=== PATIENT | female | born 1995 | race Caucasian/White ===

== ENCOUNTER 2016-09-30 06:10 | Inpatient (IN) | payer MEDICAID ==
[~2016-09-30] VITALS: Ht 165.1 cm; Wt 68.6 kg
--- NOTE | ~2016-09-30 | OR ---
PATIENT'S NAME: ALANA [facility] AGE: 21 Y [address] ROOM: [place] [id number] LOCATION: GO ADMIT DATE: 09/30/2016 OR/Procedure Report DISCHARGE DATE: FAMILY PHYSICIAN: PHYSICIAN, NO ATTENDING PHYSICIAN: Neyda Torrez SURGEON: Neyda Torrez MD [employer]ALITY [employer] INDUSTRIAL ENGINEER: DATE OF PROCEDURE: 09/30/2016 PREOPERATIVE DIAGNOSES: 1. Intrauterine at 39 weeks and 1 day. 2. Favorable cervix. POSTOPERATIVE DIAGNOSES: 1. Intrauterine at 39 weeks and 1 day. 2. Favorable cervix. PROCEDURE: Spontaneous vaginal delivery. ESTIMATED BLOOD LOSS: 300 mL. ANESTHESIA: None. FINDINGS: Male , score 8 and 9. Weight 8 pounds 2 ounces. Intact placenta, 3-vessel cord. Second-degree perineal laceration. Clear amniotic fluid. INDICATIONS: This patient is a 21-year-old, G1, P0, who is 39 weeks and 1 day gestation. She has been about 4 cm, 75%, and 0 station and lives far from the hospital, so the decision was made for labor augmentation. She had artificial rupture of membranes and Pitocin and progressed pretty fairly quickly to complete. She underwent expulsive efforts for about 15 minutes. PROCEDURE IN DETAIL: With expulsive efforts, the head was delivered over an intact perineum. The rest of fetus delivered. The nose and mouth were bulb suctioned. The cord was clamped and cut. The infant was handed to awaiting team. Cord blood was drawn. The placenta was delivered with manual traction. Cervix, vagina, and perineum were examined. There was a second- degree perineal laceration, repaired with local lidocaine and Vicryl suture. COMPLICATIONS: None. CONDITION: Mom stable in room. to nursery. PATIENT'S NAME: ALANA [facility] AGE: 21 Y [address] ROOM: [place] [id number] LOCATION: [facility] ADMIT DATE: 09/30/2016 OR/Procedure Report DISCHARGE DATE: FAMILY PHYSICIAN: , NO ATTENDING PHYSICIAN: Neyda Torrez MD SHAGGY EVERETT/modl /[id number] d: 10/01/16 1649 t: 10/06/16 1054, OPERATIVE SUMMARY
[~2016-09-30 06:10] MED LIST: PRENATAL 1+1)(P1 TAB PO
[2016-09-30 08:00] LABS: BASOPHIL % 0.3 %; EOSINOPHIL # 0.2 K/uL (0.0-0.5); EOSINOPHIL % 1.5 %; HEMATOCRIT 34.3 % (33.0-46.0); HEMOGLOBIN 11.2 g/dL (11.0-15.0); IMMATURE GRANULOCYTE # 0.1 K/uL (0.0-0.3); IMMATURE GRANULOCYTE % 0.7 %; LYMPHOCYTE % 16.3 %; MCH 27.8 pg (27.0-34.0); MCHC 32.7 gm/dL (32.0-36.5); MCV 85.1 fl (83.0-98.0); MONOCYTE # 1.4 K/uL (0.0-1.0); MONOCYTE % 11.5 %; MPV 10.1 fl (9.4-12.4); NEUTROPHIL # (ANC) 8.5 K/uL (1.8-7.8); NEUTROPHIL % 69.7 %; NRBC % 0 /100WBC (0-0.00); PLATELET COUNT 280 K/uL (150-450); RBC 4.03 M/uL (3.50-5.00); RDW-CV 13.2 % (11.9-14.6); WBC 12.3 K/uL (4.0-11.0)
[2016-10-01 04:59] LABS: BASOPHIL # 0.1 K/uL (0.0-0.2); BASOPHIL % 0.3 %; EOSINOPHIL # 0.1 K/uL (0.0-0.5); EOSINOPHIL % 0.5 %; HEMATOCRIT 28.6 % (33.0-46.0); HEMOGLOBIN 9.3 g/dL (11.0-15.0); IMMATURE GRANULOCYTE # 0.1 K/uL (0.0-0.3); IMMATURE GRANULOCYTE % 0.7 %; LYMPHOCYTE # 2.6 K/uL (0.8-4.0); LYMPHOCYTE % 13.6 %; MCH 27.6 pg (27.0-34.0); MCHC 32.5 gm/dL (32.0-36.5); MCV 84.9 fl (83.0-98.0); MONOCYTE # 1.9 K/uL (0.0-1.0); MONOCYTE % 9.9 %; MPV 9.8 fl (9.4-12.4); NEUTROPHIL # (ANC) 14.3 K/uL (1.8-7.8); NRBC % 0 /100WBC (0-0.00); PLATELET COUNT 263 K/uL (150-450); RBC 3.37 M/uL (3.50-5.00); RDW-CV 13.3 % (11.9-14.6)
[2016-10-02] MEDS ORDERED: DERMOPLAST SPRA56 GM TOP (11:34)
[2016-10-02] MEDS ORDERED: LANSINOH7 GM TOP (11:34)
[2016-10-02] MEDS ORDERED: MOTRIN800 MG PO (11:34)
[2016-10-02] MEDS ORDERED: FEOSOL325 MG PO (11:35)
[2016-10-02] MEDS ORDERED: PERCOCET 5-3251 EACH PO (11:35)
[2016-10-02] MEDS ORDERED: APNO TOP (11:35)
== END 2016-10-02 13:30 | disposition disaster alternative care site (69) | DRG 775 ==
LOC: GOBS 06:10 → GOBM 06:10 → GOBS 06:11 → GOBM 06:11 → GOBS 10-02 13:30 → GOBM 10-06 06:02
PROVIDERS: ADMIT Obstetrics & Gynecology
PROC: 4A1HX4Z Monitoring of Products of Conception, Cardiac Electrical Activity, External Approach (ICD-10-PCS; principal; 2016-09-30)
PROC: 0KQM0ZZ Repair Perineum Muscle, Open Approach (ICD-10-PCS; principal; 2016-09-30)
PROC: 10907ZC Drainage of Amniotic Fluid, Therapeutic from Products of Conception, Via Natural or Artificial Opening (ICD-10-PCS; principal; 2016-09-30)
PROC: 10E0XZZ Delivery of Products of Conception, External Approach (ICD-10-PCS; principal; 2016-09-30)
PROC: 3E033VJ Introduction of Other Hormone into Peripheral Vein, Percutaneous Approach (ICD-10-PCS; principal; 2016-09-30)
DX: O70.1 Second degree perineal laceration during delivery (principal); Z37.0 Single live birth; Z3A.39 39 weeks gestation of pregnancy
CPT/HCPCS: J2001; J2210; J2405; J2590; J3010; J7120